=== PATIENT | female | born 1955 | race Native Hawaiian/Other Pacific Islander ===

== ENCOUNTER 2016-06-27 10:30 | Outpatient (CLI) | payer OTHER ==
[2016-06-27 11:08] LABS: SODIUM 138 mmol/L (136-145)
== END 2016-06-27 11:30 | disposition home or self-care (01) ==
LOC: LABW 10:30
PROVIDERS: Internal Medicine Cardiovascular Disease
DX: I50.9 Heart failure, unspecified (principal); Z79.899 Other long term (current) drug therapy; Z51.81 Encounter for therapeutic drug level monitoring
CPT/HCPCS: 36415; 80048; 83880

== ENCOUNTER 2016-11-03 19:23 | Observation (INO) | payer OTHER ==
[~2016-11-03] VITALS: Ht 162.6 cm; Wt 112.5 kg
[2016-11-03 19:40] VITALS: BP 162/96; TEMP 98.6
[2016-11-03 20:05] LABS: PLATELET COUNT 283 K/uL (152-353)
[2016-11-03 20:11] LABS: POTASSIUM 4.3 mmol/L (3.6-5.2); SODIUM 139 mmol/L (136-145)
[2016-11-03 20:15] LABS: PARTIAL THROMBOPLASTIN TIME 24.9 SECONDS (24.5-33.6)
[2016-11-03] MEDS ORDERED: ELIQUIS5 MG OR (20:18)
[2016-11-03] MEDS ORDERED: REQUIP1 MG OR (20:20)
[2016-11-03] MEDS ORDERED: LISI10TA11 PO (20:21)
[2016-11-03] MEDS ORDERED: NAPROSYN500 MG OR (20:22)
[2016-11-03] MEDS ORDERED: OMEP40CA PO (20:24)
[2016-11-03] MEDS ORDERED: EC-NAPROSYN500 MG OR (20:24)
[2016-11-03 22:23] VITALS: BP 143/61; TEMP 98.5; Ht 162.6 cm; Wt 112.5 kg
[2016-11-04] VITALS: BP 112/50; TEMP 98.6
[2016-11-04 04:00] VITALS: BP 123/46; TEMP 97.9
[2016-11-04 04:52] LABS: PLATELET COUNT 247 K/uL (152-353)
[2016-11-04 05:10] LABS: POTASSIUM 3.9 mmol/L (3.6-5.2); SODIUM 142 mmol/L (136-145)
[2016-11-04 08:00] VITALS: BP 138/49; TEMP 97.9
--- NOTE | 2016-11-04 10:45 | NUR ---
PT TAKEN BY EMS TRANSPORT TO [facility] IN [place] @ 1033, REPORT GIVEN TO TAZ HERNANDEZ RN @ 1040. LABS AND H&P FAXED TO [facility]. IV TO LEFT HAND IN TACT, NO REDNESS OR EDEMA NOTED, NAD NOTED, PT COOPERATIVE, NO C/O VOICED. O2@2L NC APPLIED TO PT.
== END 2016-11-04 10:30 | disposition short-term general hospital (02) ==
LOC: ED 19:23 → MED/SURG 20:35
PROVIDERS: Internal Medicine
DX: I20.0 Unstable angina (principal); R09.89 Other specified symptoms and signs involving the circulatory and respiratory systems; R07.89 Other chest pain; I10 Essential (primary) hypertension; G47.33 Obstructive sleep apnea (adult) (pediatric); E66.8 Other obesity
CPT/HCPCS: 36415; 80053; 82550; 82553; 83036; 83735; 83880; 84484; 85027; 85610; 85730; 93005; 94760; 96372; 99220; 99284; G0378; J1650

== ENCOUNTER 2016-11-04 10:45 | Outpatient (CLI) | payer OTHER ==
[~2016-11-04 10:45] MED LIST: EC-NAPROSYN500 MG OR; ELIQUIS5 MG OR; LISI10TA11 PO; NAPROSYN500 MG OR; OMEP40CA PO; REQUIP1 MG OR
== END 2016-11-04 12:04 | disposition short-term general hospital (02) ==
LOC: AMB 10:45
DX: I20.0 Unstable angina (principal); R09.89 Other specified symptoms and signs involving the circulatory and respiratory systems; R07.89 Other chest pain; I10 Essential (primary) hypertension; G47.33 Obstructive sleep apnea (adult) (pediatric); E66.8 Other obesity
CPT/HCPCS: A0425; A0427

== ENCOUNTER 2016-11-29 09:07 | Outpatient (CLI) | payer OTHER ==
[2016-11-29 10:49] LABS: POTASSIUM 4.4 mmol/L (3.6-5.2); SODIUM 138 mmol/L (136-145)
[2016-11-29 10:57] LABS: PLATELET COUNT 248 K/uL (152-353)
== END 2016-11-29 19:00 | disposition home or self-care (01) ==
LOC: LABW 09:07
PROVIDERS: Internal Medicine Cardiovascular Disease
DX: I50.9 Heart failure, unspecified (principal); Z79.899 Other long term (current) drug therapy; Z51.81 Encounter for therapeutic drug level monitoring; E11.9 Type 2 diabetes mellitus without complications
CPT/HCPCS: 36415; 80053; 80061; 81000; 82043; 82570; 83036; 83880; 84439; 84443; 85027

== ENCOUNTER 2017-04-26 11:55 | Outpatient (CLI) | payer OTHER ==
[2017-04-26 12:30] LABS: POTASSIUM 4.3 mmol/L (3.6-5.2)
== END 2017-04-27 04:42 | disposition home or self-care (01) ==
LOC: LABW 11:55
PROVIDERS: Internal Medicine Cardiovascular Disease
DX: I50.9 Heart failure, unspecified (principal)
CPT/HCPCS: 36416; 80048

== ENCOUNTER 2017-06-19 10:19 | Outpatient (CLI) | payer OTHER ==
[2017-06-19 10:52] LABS: PLATELET COUNT 275 K/uL (152-353)
[2017-06-19 11:09] LABS: POTASSIUM 4.3 mmol/L (3.6-5.2)
== END 2017-06-19 21:47 | disposition home or self-care (01) ==
LOC: LABW 10:19
PROVIDERS: Internal Medicine
DX: E11.9 Type 2 diabetes mellitus without complications (principal)
CPT/HCPCS: 36415; 80053; 80061; 81000; 83036; 84443; 85027

== ENCOUNTER 2018-12-25 10:14 | Outpatient (CLI) | payer OTHER ==
[2018-12-25 10:42] LABS: PLATELET COUNT 310 K/uL (152-353)
[2018-12-25 10:51] LABS: POTASSIUM 3.8 mmol/L (3.6-5.2)
== END 2018-12-25 23:44 | disposition home or self-care (01) ==
LOC: LABW 10:14
PROVIDERS: Physician Assistant
DX: E11.620 Type 2 diabetes mellitus with diabetic dermatitis (principal)
CPT/HCPCS: 36415; 80053; 85027

== ENCOUNTER 2019-05-08 09:41 | Outpatient (CLI) | payer OTHER ==
[2019-05-08 10:12] LABS: PLATELET COUNT 267 K/uL (152-353)
[2019-05-08 10:25] LABS: POTASSIUM 3.8 mmol/L (3.6-5.2)
== END 2019-05-08 20:17 | disposition home or self-care (01) ==
LOC: LABW 09:41
PROVIDERS: Internal Medicine
DX: Z00.00 Encounter for general adult medical examination without abnormal findings (principal); E11.9 Type 2 diabetes mellitus without complications; Z13.820 Encounter for screening for osteoporosis; E55.9 Vitamin D deficiency, unspecified; R82.998 Other abnormal findings in urine
CPT/HCPCS: 36415; 80053; 80061; 81000; 82306; 84439; 84443; 85027; 87086; 87088

== ENCOUNTER 2019-05-17 08:58 | Outpatient (CLI) | payer OTHER | END 2019-05-17 19:39 | disposition home or self-care (01) | LOC: MAMMO 08:58 | DX: Z12.31 Encounter for screening mammogram for malignant neoplasm of breast (principal); Z13.820 Encounter for screening for osteoporosis; N95.8 Other specified menopausal and perimenopausal disorders ==

== ENCOUNTER 2020-06-06 10:11 | Outpatient (CLI) | payer OTHER ==
[2020-06-06 11:14] LABS: PLATELET COUNT 265 K/uL (152-353)
[2020-06-06 11:34] LABS: POTASSIUM 4.4 mmol/L (3.6-5.2)
== END 2020-06-06 18:59 | disposition home or self-care (01) ==
LOC: LAB 10:11
PROVIDERS: ATTEND Internal Medicine
DX: E11.9 Type 2 diabetes mellitus without complications (principal)
CPT/HCPCS: 80053; 80061; 83036; 84439; 84443; 85027

== ENCOUNTER 2020-07-18 09:49 | Outpatient (CLI) | payer OTHER ==
[2020-07-18 10:01] LABS: PLATELET COUNT 268 K/uL (152-353)
[2020-07-18 10:20] LABS: POTASSIUM 3.8 mmol/L (3.6-5.2)
== END 2020-07-18 23:29 | disposition home or self-care (01) ==
LOC: LAB 09:49
PROVIDERS: ATTEND Internal Medicine
DX: Z00.00 Encounter for general adult medical examination without abnormal findings (principal); Z13.820 Encounter for screening for osteoporosis; E11.9 Type 2 diabetes mellitus without complications
CPT/HCPCS: 80053; 80061; 82306; 83036; 84439; 84443; 85027

== ENCOUNTER 2021-01-08 11:08 | Outpatient (CLI) | payer OTHER | END 2021-01-08 19:56 | disposition home or self-care (01) | LOC: RAD 11:08 | PROVIDERS: ATTEND Internal Medicine | DX: U07.1 COVID-19 (principal); J40 Bronchitis, not specified as acute or chronic ==

== ENCOUNTER 2021-03-16 11:19 | Emergency (ER) | payer OTHER ==
[~2021-03-16] VITALS: Ht 152.4 cm; Wt 112.5 kg
[2021-03-16 12:54] LABS: PARTIAL THROMBOPLASTIN TIME 27.8 SECONDS (24.5-33.6)
[2021-03-16 13:13] LABS: PLATELET COUNT 341 K/uL (152-353)
[2021-03-16 16:50] VITALS: BP 104/61; TEMP 99
== END 2021-03-16 16:50 | disposition short-term general hospital (02) ==
LOC: ED 11:19
PROVIDERS: Hospitalist
PROC: 0T9B70Z Drainage of Bladder with Drainage Device, Via Natural or Artificial Opening (ICD-10-PCS; principal; 2021-03-16)
DX: K65.1 Peritoneal abscess (principal); Z11.52 Encounter for screening for COVID-19
CPT/HCPCS: 51702; 80053; 81000; 82550; 83690; 83880; 84484; 85027; 85610; 85730; 87635; 93005; 96360; 96361; 96365; 96366; 96375; 99284; J1170; J1200; J1956; J2270; J2405; J3370; J3490; U0003

== ENCOUNTER 2021-05-17 14:01 | Inpatient (IN) | payer OTHER ==
[2021-05-18 08:52] LABS: PLATELET COUNT 284 K/uL (152-353)
[2021-05-18 09:11] LABS: POTASSIUM 3.3 mmol/L (3.6-5.2)
== END 2021-05-25 09:06 | disposition still patient (30) ==
LOC: PAVC 14:01
PROVIDERS: ADMIT Internal Medicine; ATTEND Internal Medicine
DX: N39.0 Urinary tract infection, site not specified (principal); Z48.815 Encounter for surgical aftercare following surgery on the digestive system; Z98.0 Intestinal bypass and anastomosis status; M62.81 Muscle weakness (generalized); R13.11 Dysphagia, oral phase; R26.81 Unsteadiness on feet; Z74.1 Need for assistance with personal care
CPT/HCPCS: 36415; 80053; 80061; 81000; 82306; 82607; 82728; 83036; 83540; 84134; 84439; 84443; 85027; 85652; 87081

== ENCOUNTER 2021-05-25 13:36 | Inpatient (IN) | payer OTHER | END 2021-06-25 14:09 | disposition home or self-care (01) | LOC: PAVC 13:36 | PROVIDERS: ADMIT Internal Medicine; ATTEND Internal Medicine | DX: N39.0 Urinary tract infection, site not specified (principal); Z48.815 Encounter for surgical aftercare following surgery on the digestive system; Z98.0 Intestinal bypass and anastomosis status; M62.81 Muscle weakness (generalized); R13.11 Dysphagia, oral phase; R26.81 Unsteadiness on feet; Z74.1 Need for assistance with personal care | CPT/HCPCS: 36415; 80048; 80053; 83735; 85027; 85044; 87324; 87449 ==

== ENCOUNTER 2021-05-29 06:50 | Outpatient (CLI) | payer OTHER ==
[2021-05-29 07:26] LABS: PLATELET COUNT 262 K/uL (152-353)
== END 2021-05-29 19:29 | disposition home or self-care (01) ==
LOC: LAB 06:50
PROVIDERS: ATTEND Internal Medicine
DX: A04.72 Enterocolitis due to Clostridium difficile, not specified as recurrent (principal)
CPT/HCPCS: 80053; 85027

== ENCOUNTER 2021-06-07 06:31 | Outpatient (CLI) | payer OTHER ==
[2021-06-07 07:38] LABS: PLATELET COUNT 285 K/uL (152-353)
[2021-06-07 07:51] LABS: POTASSIUM 2.7 mmol/L (3.6-5.2)
== END 2021-06-07 18:50 | disposition home or self-care (01) ==
LOC: LAB 06:31
PROVIDERS: ATTEND Internal Medicine
DX: E87.6 Hypokalemia (principal)
CPT/HCPCS: 80048; 83735; 85027

== ENCOUNTER 2021-06-14 05:40 | Outpatient (CLI) | payer OTHER ==
[2021-06-14 07:13] LABS: PLATELET COUNT 288 K/uL (152-353)
[2021-06-14 07:27] LABS: POTASSIUM 2.3 mmol/L (3.6-5.2)
== END 2021-06-14 19:02 | disposition home or self-care (01) ==
LOC: LAB 05:40
PROVIDERS: ATTEND Internal Medicine
DX: R79.89 Other specified abnormal findings of blood chemistry (principal)
CPT/HCPCS: 36415; 80048; 83735; 85027; 85044

== ENCOUNTER 2021-06-21 06:47 | Outpatient (CLI) | payer OTHER ==
[2021-06-21 07:38] LABS: PLATELET COUNT 324 K/uL (152-353)
[2021-06-21 08:24] LABS: POTASSIUM 3.7 mmol/L (3.6-5.2)
== END 2021-06-21 18:50 | disposition home or self-care (01) ==
LOC: LAB 06:47
PROVIDERS: ATTEND Internal Medicine
DX: E11.9 Type 2 diabetes mellitus without complications (principal); D64.89 Other specified anemias; E87.6 Hypokalemia
CPT/HCPCS: 80053; 83735; 85027

== ENCOUNTER 2021-07-14 10:17 | Outpatient (CLI) | payer OTHER ==
[2021-07-14 10:29] LABS: PLATELET COUNT 277 K/uL (152-353)
[2021-07-14 11:04] LABS: POTASSIUM 4.3 mmol/L (3.6-5.2)
== END 2021-07-14 19:16 | disposition home or self-care (01) ==
LOC: LAB 10:17
PROVIDERS: ATTEND Internal Medicine
DX: D64.89 Other specified anemias (principal); E11.9 Type 2 diabetes mellitus without complications; E78.49 Other hyperlipidemia; I10 Essential (primary) hypertension
CPT/HCPCS: 80053; 80061; 81000; 83036; 83735; 84439; 84443; 85027

== ENCOUNTER 2021-07-30 08:23 | Outpatient (CLI) | payer OTHER | END 2021-07-30 19:56 | disposition home or self-care (01) | LOC: MAMMO 08:23 | PROVIDERS: ATTEND Internal Medicine | DX: Z12.31 Encounter for screening mammogram for malignant neoplasm of breast (principal) ==

== ENCOUNTER 2022-04-22 07:39 | Outpatient (CLI) | payer OTHER ==
[2022-04-22 08:16] LABS: PLATELET COUNT 283 K/uL (152-353)
[2022-04-22 08:47] LABS: POTASSIUM 4.1 mmol/L (3.6-5.2)
== END 2022-04-22 19:10 | disposition home or self-care (01) ==
LOC: LABW 07:39
PROVIDERS: ATTEND Internal Medicine
DX: E11.9 Type 2 diabetes mellitus without complications (principal)
CPT/HCPCS: 36415; 80053; 80061; 81002; 83036; 84439; 84443; 85027

== ENCOUNTER 2022-11-25 09:08 | Outpatient (CLI) | payer OTHER ==
[2022-11-25 09:47] LABS: PLATELET COUNT 275 K/uL (152-353)
[2022-11-25 10:08] LABS: POTASSIUM 3.9 mmol/L (3.6-5.2)
== END 2022-11-25 20:43 | disposition home or self-care (01) ==
LOC: LABW 09:08
PROVIDERS: ATTEND Internal Medicine
DX: E11.9 Type 2 diabetes mellitus without complications (principal); R82.998 Other abnormal findings in urine; Z79.899 Other long term (current) drug therapy
CPT/HCPCS: 36415; 80053; 80061; 81000; 83036; 83735; 84439; 84443; 85027; 87086; 87088